=== PATIENT | male | born 1995 ===

== ENCOUNTER 2017-03-20 12:47 | Observation (INO) | payer MEDICAID ==
[2017-03-20 12:50] VITALS: BMI 20.3
[2017-03-20 12:51] VITALS: BP 113/74; PULSE 55; RESP 18; TEMP 98; O2SAT 98
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
[2017-03-20 14:36] LABS: BASO % 0.4 % (0.0-2.0); EOS # 0.1 K/uL (0.0-0.7); EOS % 1.3 % (0.0-4.0); HEMOGLOBIN 13.8 g/dL (12.0-18.0); LYMPH # 2.1 K/uL (1.0-4.3); LYMPH % 22.4 % (20.0-40.0); MEAN CELL VOLUME 86.3 fl (80.0-94.0); MEAN CORPUSCULAR HEMOGLOBIN 29.3 pg (27.0-31.0); MEAN CORPUSCULAR HGB CONC 33.9 g/dL (33.0-37.0); MEAN PLATELET VOLUME 7.6 fl (7.2-11.7); MONO # 0.7 K/uL (0.0-0.8); MONO % 7.7 % (0.0-10.0); NEUT # 6.3 K/uL (1.8-7.0); NEUT % 68.2 % (50.0-75.0); NRBC % 0.1 % (0.0-0.0); RBC 4.72 Mil/uL (4.40-5.90); RED CELL DISTRIBUTION WIDTH 13.3 % (11.5-14.5); WHITE BLOOD COUNT 9.3 K/uL (4.8-10.8)
[2017-03-20 14:50] LABS: ALB/GLOB RATIO 1.5 (1.0-2.1); ALBUMIN 4.5 g/dL (3.5-5.0); ALT/SGPT 39 U/L (21-72); AST/SGOT 31 U/L (17-59); BLOOD UREA NITROGEN 24 mg/dl (9-20); CALCIUM 9.3 mg/dL (8.4-10.2); GFR AFRICAN-AMERICAN > 60; GFR NON-AFRICAN AMERICAN > 60
[2017-03-20] MEDS ORDERED: Iohexol 300 100 ML IJ ONE (14:53)
[2017-03-20] MEDS ORDERED: Sodium Chloride 0.9% 50 ML IV ONE (14:53)
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
[2017-03-20] MEDS ORDERED: Sodium Chloride 0.9% 1,000 ML IV STA (16:13)
--- NOTE | 2017-03-20 17:27 | ED PDOC ---
- Laboratory Results Result Diagrams: 03/20/17 14:20 03/20/17 14:20 - ECG O2 Sat by Pulse Oximetry: 98 (RA) Pulse Ox Interpretation: Normal Medical Decision Making Medical Decision Making: receiving sign out: Pt signed out to me by Dr. Hernandez pending surgical consult and final disposition. Scribe Attestation: Documented by Guera Wild acting as a scribe for Martha Callaway MD. Provider Attestation: All medical record entries made by the Scribe were at my direction and personally dictated by me. I have reviewed the chart and agree that the record accurately reflects my personal performance of the history, physical exam, medical decision making, and the department course for this patient. I have also personally directed, reviewed, and agree with the discharge instructions and disposition. Disposition - Clinical Impression Clinical Impression: Abdominal wall hematoma - POA Present On Arrival: None - Disposition Disposition: Routine/Home Disposition Time: 16:41 Condition: GOOD Progress Note - Review of Symptoms Events since last encounter: Time: 7 Pt seen and evaluated by Dr. Marie, surgical instrument maker and pt is stable for d/c home. Pt given information regarding home care and advised to return to ED if area of concern enlarges significantly. Dr. Marie discussed case with Dr. Kimball who is aware.
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
== END 2017-03-20 18:29 | disposition home or self-care (01) ==
LOC: H.ER 12:47 → H.EROBSV 15:50
PROVIDERS: ADMIT Emergency Medicine; ATTEND Emergency Medicine
DX: S30.1XXA Contusion of abdominal wall, initial encounter (principal); V89.9XXA Person injured in unspecified vehicle accident, initial encounter; Y93.55 Activity, bike riding; Y92.9 Unspecified place or not applicable; Y99.9 Unspecified external cause status; F17.200 Nicotine dependence, unspecified, uncomplicated